=== PATIENT | female | born 1950 | race Caucasian/White ===

== ENCOUNTER → 2020-11-06 | Outpatient (CLI) | payer MEDICARE ==
[~2020-11-06] MED LIST: HYDR50TA PO; LEVO50TA11 PO; LISI20TA24 PO; MONT10TA32 PO; P EP PO; POTA10TA14 PO
== END | disposition home or self-care (01) ==
LOC: RAH 14:06
PROVIDERS: ATTEND Family Medicine
DX: R60.9 Edema, unspecified (principal)
CPT/HCPCS: 93970

== ENCOUNTER → 2021-10-17 | Outpatient (CLI) | payer MEDICARE ==
[~2021-10-17] MED LIST changes: +MONT-39 PO; -MONT10TA32 PO
== END | disposition home or self-care (01) ==
LOC: SHCH 14:39
PROVIDERS: ATTEND Internal Medicine Cardiovascular Disease
DX: I87.2 Venous insufficiency (chronic) (peripheral) (principal); R60.9 Edema, unspecified
CPT/HCPCS: 93970